=== PATIENT | female | born 1960 | race Caucasian/White ===

== ENCOUNTER → 2019-11-23 | Outpatient (CLI) | payer OTHER ==
--- NOTE | 2019-11-23 14:53 | P.BASOAP ---
Subjective Progress Note Date: 11/23/19 Principal diagnosis: morbid obesity, vomiting Patient known to our service from previous lap band. Lap band placed in 2001. Had a revision in 2003 and again in 2011. She believes she has 10 mL in her band and believes it is full. Over the last 1-2 months has had increasing night cough and vomiting. Has emesis 2 times per week. Denies pain. No hematemesis. No fevers. Starting weight 243 current weight 170. Objective - Exam Abdomen: Soft, nontender, nondistended Assessment/Plan (1) Morbid obesity Narrative/Plan: Patient with worsening night cough and vomiting. Will check esophagogram at this time. Likely empty LAP-BAND following that. Plan: Date: Initial Weight: Initial BMI: Current Weight: Current BMI: Type of Surgery: Total Volume in Band: Previous Volume: Volume Removed: Volume Added: Band Size:
[2019-11-23 16:09] VITALS: BP 112/72; PULSE 93; TEMP 98.7; BMI 29.2
--- NOTE | 2019-11-23 16:40 | FL ---
EXAMINATION TYPE: FL barium swallow DATE OF EXAM: 11/23/2019 CLINICAL HISTORY: 59-year-old female dysphagia. History of 2 prior lap band revisions, last in 2011. Patient with vomiting and trouble keeping food down. Dysphagia. Total fluoroscopy time: 2 minutes 23 seconds. Total images: 35. TECHNIQUE: A single contrast esophagram is performed performed. COMPARISON: None FINDINGS: Initial elementary science teacher image shows less than to be appropriately positioned. The patient ingested a total of o nly 1 ounce of oral contrast. An initial small swallow showed prompt passage across the lap band. How ever, subsequent swallows demonstrated a moderate to severe obstruction at the level of the lap band. Intermittent trace trickle of contrast is noted across the band with recurrent bouts of gastroesopha geal and intraesophageal reflux with instilling tertiary contractions. Esophagus shows normal course and caliber without suspicious filling defect. Slight irregularity of the distal esophagus appears to correspond to tertiary contractions. IMPRESSION: 1. No evidence for lap band prolapse. 2. Very tight lap band contributing to a moderate to severe obstruction. Patient ingested only 1 ounc e of contrast and it remains pooled proximal to the lap band with recurrent bouts of gastroesophageal and intraesophageal reflux.
== END | disposition home or self-care (01) ==
LOC: BARWHC3 13:55
PROVIDERS: ATTEND Surgery
DX: Z46.51 Encounter for fitting and adjustment of gastric lap band (principal); E66.01 Morbid (severe) obesity due to excess calories; K21.9 Gastro-esophageal reflux disease without esophagitis; Z68.29 Body mass index [BMI] 29.0-29.9, adult; Z98.84 Bariatric surgery status; K22.2 Esophageal obstruction; K31.89 Other diseases of stomach and duodenum
CPT/HCPCS: 74220; 99213

== ENCOUNTER → 2020-03-21 | Outpatient (CLI) | payer OTHER ==
[2020-03-21 13:15] VITALS: BP 126/85; PULSE 91; RESP 16; TEMP 98.3; BMI 33.0
--- NOTE | 2020-03-21 15:22 | P.BASOAP ---
Subjective Progress Note Date: 03/21/20 Principal diagnosis: Morbid obesity Patient well-known to our service. Last seen in November. 5 mL was removed at that time and upper GI showed high-grade obstruction. No prolapse. Patient is tearful and depressed because of the recent weight gain. She is requesting a fill. Objective - Vital Signs Vital signs: Vital Signs Temp 98.3 F 03/21/20 13:09 Pulse 91 03/21/20 13:09 Resp 16 03/21/20 13:09 BP 126/85 03/21/20 13:09 Pulse Ox Intake & Output 03/20/20 03/21/20 03/21/20 18:59 06:59 18:59 Weight 87.226 kg - Exam Abdomen: Soft, nontender, nondistended Assessment/Plan (1) Morbid obesity Narrative/Plan: Patient did well after the band was emptied. No residual nausea vomiting or reflux. She wants all 5 mL replaced. We compromised on replacing 4 mL at this time. Would be willing to do one additional fill 4.5 mL if restriction still necessary. If patient requires further fills beyond that we will plan esophagram. The patient's lap band port was palpated. The site was aseptically prepped. The Maldonado needle was advanced into the port. A total of 4 ml of fluid was added. Pressure was held and a sterile dressing was applied. Plan: Date: 03/21/20 Initial Weight: 110.223 kg Initial BMI: 41.7 Current Weight: 87.226 kg Current BMI: 33.0 Type of Surgery: Total Volume in Band: 4 Previous Volume: Volume Removed: Volume Added: 4 Band Size:
== END | disposition home or self-care (01) ==
LOC: BARWHC3 12:24
PROVIDERS: ATTEND Surgery
DX: Z46.51 Encounter for fitting and adjustment of gastric lap band (principal); E66.01 Morbid (severe) obesity due to excess calories; Z68.33 Body mass index [BMI] 33.0-33.9, adult
CPT/HCPCS: 99212